=== PATIENT | female | born 2000 | race Caucasian/White ===

== ENCOUNTER 2018-11-18 14:30 | Emergency (ER) | payer OTHER ==
[2018-11-18 15:17] LABS: BASO % 0.5 % (0.0-2.0); EOS % 0.1 % (0.0-4.0); HEMOGLOBIN 13.4 g/dL (11.0-16.0); LYMPH # 1.6 K/uL (1.0-4.3); LYMPH % 26.3 % (20.0-40.0); MEAN CELL VOLUME 85.8 fL (81.0-99.0); MEAN CORPUSCULAR HEMOGLOBIN 28.9 pg (27.0-31.0); MEAN CORPUSCULAR HGB CONC 33.7 g/dL (33.0-37.0); MEAN PLATELET VOLUME 8.4 fL (7.2-11.7); MONO # 0.5 K/uL (0.0-0.8); MONO % 8.1 % (0.0-10.0); NEUT # 3.9 K/uL (1.8-7.0); NRBC % 0.1 % (0.0-2.0); RBC 4.64 Mil/uL (3.80-5.20); RED CELL DISTRIBUTION WIDTH 14.7 % (11.5-14.5)
[2018-11-18 15:18] LABS: HCG,QUALITATIVE URINE NEGATIVE (NEGATIVE)
[2018-11-18 15:22] LABS: SQUAMOUS EPITHIAL 2 /hpf (0-5); URINE BACTERIA RARE (<OCC); URINE BILIRUBIN NEGATIVE (NEGATIVE); URINE BLOOD NEGATIVE (NEGATIVE); URINE CLARITY Hazy (Clear); URINE COLOR Amber (YELLOW); URINE GLUCOSE (UA) NORMAL (Normal); URINE LEUKOCYTE ESTERASE NEG Leu/uL (Negative); URINE PROTEIN NEGATIVE (NEGATIVE); URINE UROBILINOGEN NORMAL mg/dL (0.2-1.0)
[2018-11-18 15:29] LABS: BLOOD UREA NITROGEN 8 mg/dL (7-17)
[2018-11-18 15:30] LABS: ALB/GLOB RATIO 1.5 (1.0-2.1); ALBUMIN 4.7 g/dL (3.5-5.0); ALT/SGPT 12 U/L (9-52); AST/SGOT 30 U/L (14-36); CALCIUM 9.9 mg/dl (8.6-10.4); GFR NON-AFRICAN AMERICAN > 60
[2018-11-18 15:31] LABS: BARBITURATES, UR NEGATIVE (NEGATIVE); BENZODIAZEPINES, UR NEGATIVE (NEGATIVE); OPIATES, UR NEGATIVE (NEGATIVE); PHENCYCLIDINE, UR NEGATIVE (NEGATIVE)
--- NOTE | 2018-11-18 15:43 | C.PDOC ---
History Of Present Illness 18 year old female presents to the ED with mother for psychiatric evaluation. Patient states she has been feeling sad, like her "life is falling apart," and tried to commit suicide by slitting her wrists today. Patient was stopped by the police before she could harm herself. Patient reports history of suicidal behavior once in the past. In June 2018, patient attempted to down herself in a [place] in [facility]. She did not undergo any psychiatric evaluation after the incident. She admits to smoking cigarettes and marijuana. She denies alcohol or drug use. Patient also states that she has tried burning herself with hot bernardino pins in the past. She denies homicidal ideation and does not offer any physical complaints at this time. Time Seen by Provider: 11/18/18 14:42 Chief Complaint (Nursing): Psychiatric Evaluation History Per: Patient History/Exam Limitations: no limitations Onset/Duration Of Symptoms: Hrs Current Symptoms Are (Timing): Still Present Suicide/Self Injury Attempted (Context): Cut Wrists (attempted) Associated Symptoms: Depression, Suicidal Thoughts, Suicidal Plan Additional History Per: Patient, EMS Past Medical History Reviewed: Historical Data, Nursing Documentation, Vital Signs Vital Signs: Last Vital Signs Temp 99.4 F 11/18/18 14:40 Pulse 84 11/18/18 14:40 Resp 18 11/18/18 14:40 BP 136/91 H 11/18/18 14:40 Pulse Ox 99 11/18/18 14:40 - Medical History PMH: No Chronic Diseases Surgical History: No Surg Hx Family History: States: Unknown Family Hx - Social History Hx Alcohol Use: No Hx Substance Use: Yes Review Of Systems Psych: Positive for: Depression, Suicidal ideation Physical Exam - Physical Exam Appears: Non-toxic, No Acute Distress, Other (upset, crying ) Skin: Normal Color, Warm, Dry Head: Atraumatic, Normacephalic Oral Mucosa: Moist Neck: Supple Chest: Symmetrical Respiratory: No Accessory Muscle Use Extremity: Normal ROM Neurological/Psych: Normal Speech, Normal Cognition ED Course And Treatment - Laboratory Results Result Diagrams: 11/18/18 15:07 11/18/18 15:07 Lab Results: Total Bilirubin 0.4 mg/dL (0.2-1.3) 11/18/18 15:07 AST 30 U/L (14-36) 11/18/18 15:07 ALT 12 U/L (9-52) 11/18/18 15:07 Alkaline Phosphatase 90 U/L (38-126) 11/18/18 15:07 Total Protein 7.8 g/dL (6.3-8.3) 11/18/18 15:07 Albumin 4.7 g/dL (3.5-5.0) 11/18/18 15:07 Globulin 3.1 gm/dL (2.2-3.9) 11/18/18 15:07 Albumin/Globulin Ratio 1.5 (1.0-2.1) 11/18/18 15:07 Urine Color Krystle (YELLOW) 11/18/18 15:07 Urine Clarity Hazy (Clear) 11/18/18 15:07 Urine pH 6.0 (5.0-8.0) 11/18/18 15:07 Ur Specific [place] 1.026 (1.003-1.030) 11/18/18 15:07 Urine Protein Negative mg/dL (NEGATIVE) 11/18/18 15:07 Urine Glucose (UA) Normal mg/dL (Normal) 11/18/18 15:07 Urine Ketones Trace mg/dL (NEGATIVE) 11/18/18 15:07 Urine Blood Negative (NEGATIVE) 11/18/18 15:07 Urine Nitrate Negative (NEGATIVE) 11/18/18 15:07 Urine Bilirubin Negative (NEGATIVE) 11/18/18 15:07 Urine Urobilinogen Normal mg/dL (0.2-1.0) 11/18/18 15:07 Ur Leukocyte Esterase Neg Germaine/uL (Negative) 11/18/18 15:07 Urine WBC (Auto) 1 /hpf (0-5) 11/18/18 15:07 Urine RBC (Auto) 1 /hpf (0-3) 11/18/18 15:07 Ur Squamous Epith Cells 2 /hpf (0-5) 11/18/18 15:07 Urine Bacteria Rare (<OCC) 11/18/18 15:07 Urine HCG, Qual Negative (NEGATIVE) 11/18/18 15:07 Urine HCG, Qual Negative (NEGATIVE) 11/18/18 15:07 O2 Sat by Pulse Oximetry: 99 (on RA) Pulse Ox Interpretation: Normal Medical Decision Making Medical Decision Making: Progress: Bloodwork and urinalysis ordered and reviewed. Disposition - Disposition Disposition Time: 18:32 Condition: STABLE Forms: [employer] (Montenegrin) - Clinical Impression Clinical Impression: Acute depression - Scribe Statement The provider has reviewed the documentation as recorded by the Scribe (Daylin Hurtado) Provider Attestation: All medical record entries made by the Scribe were at my direction and personall y dictated by me. I have reviewed the chart and agree that the record accurately reflects my personal performance of the history, physical exam, medical decision making, and the department course for this patient. I have also personally directed, reviewed, and agree with the discharge instructions and disposition. Physician Patient Turnover Patient Signed Over To: Nidia Osuna Handoff Comments: SI, pending dispo by crisis. Medically cleared.
[2018-11-18 18:33] VITALS: O2SAT 99
[2018-11-18 22:10] VITALS: BP 133/86; PULSE 74; RESP 20; TEMP 99.7
== END 2018-11-18 22:55 | disposition home or self-care (01) ==
LOC: C.ER 14:30
DX: F32.9 Major depressive disorder, single episode, unspecified (principal)